=== PATIENT | male | born 1960 | race American Indian/Alaskan Native ===

== ENCOUNTER 2017-12-22 20:04 | Emergency (ER) | payer MEDICAID, OTHER ==
[2017-12-22] MEDS ORDERED: CATAPRES ONE (23:02)
[2017-12-22] MEDS ORDERED: CATAPRES PO ONE (23:04)
[2017-12-22 23:47] LABS: Basophils % (Auto) 0.6 % (0.0-1.8); Eosinophils # (Auto) 0.3 K/mm3 (0.0-0.4); Eosinophils % (Auto) 4.3 % (0.0-4.3); Hematocrit 42.7 % (35.5-45.6); Hemoglobin 13.9 gm/dl (11.8-15.2); Lymphocytes # (Auto) 2.5 K/mm3 (1.2-5.4); Lymphocytes % (Auto) 38.8 % (13.4-35.0); Mean Corpuscular HGB Conc 33 % (32-34); Mean Corpuscular Hemoglobin 28 pg (28-32); Mean Corpuscular Volume 85 fl (84-94); Monocytes # (Auto) 0.6 K/mm3 (0.0-0.8); Monocytes % (Auto) 9.1 % (0.0-7.3); Platelet Count 196 K/mm3 (140-440); Red Blood Count 5.02 M/mm3 (3.65-5.03); Red Cell Distribution Width 14.1 % (13.2-15.2)
[2017-12-22 23:51] LABS: Partial Thromboplastin Time 28.3 Sec. (24.2-36.6)
[2017-12-22 23:53] LABS: BUN/Creatinine Ratio 16; Blood Urea Nitrogen 18 mg/dL (9-20); Hemolysis Index 3
[2017-12-22 23:54] LABS: INR 1.02 (0.87-1.13)
--- NOTE | 2017-12-23 03:21 | Cat Scan Report ---
FINAL REPORT PROCEDURE: CT HEAD/BRAIN WO CON TECHNIQUE: Computerized tomography of the head was performed without contrast material. HISTORY: htn and blurred vision COMPARISON: No prior studies are available for comparison. FINDINGS: Skull and scalp: Normal. Paranasal sinuses: Normal. Ventricles and subarachnoid spaces: Normal. Cerebrum: No evidence of hemorrhage, acute infarction or mass. 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 Cerebellum and brainstem: No evidence of hemorrhage, acute infarction or mass. Vasculature: Normal. Comments: None. IMPRESSION: There is no acute intracranial abnormality.
[2017-12-23] MEDS ORDERED: CATAPRES ONE (07:35)
[2017-12-23] MEDS ORDERED: CATAPRES PO ONE (07:40)
[2017-12-23] MEDS ORDERED: ASPIRIN PO ONE (07:43)
[2017-12-23] MEDS ORDERED: NORMODYNE PO ONE (13:37)
[2017-12-23] MEDS ORDERED: NORMODYNE ONE (15:43)
--- NOTE | 2017-12-23 15:44 | Emergency Department Report ---
ED General Adult HPI - General Chief complaint: High BP Stated complaint: ELEVATED BLOOD PRESURE/BACK PAIN Time Seen by Provider: 12/23/17 13:27 Source: patient Mode of arrival: Ambulatory Limitations: No Limitations - History of Present Illness Initial comments: Patient stated that his vision was "a little blurry yesterday". He stated that "I knew it was time to get my blood pressure medicine". He doesn't have any blurred vision today. He is asymptomatic. He's been noncompliant with her blood pressure medicine for several months. He does not have any complaints at this time. -: month(s) (noncompliant for months hypertension for years visual symptoms resolved), year(s) Severity scale (0 -10): 0 - Related Data Previous Rx's Medication Instructions Recorded Last Taken Type Labetalol [Normodyne TAB] 100 mg PO BID #60 tablet 12/23/17 Unknown Rx Losartan/Hydrochlorothiazide 1 each PO QDAY #30 tablet 12/23/17 Unknown Rx [Losartan-Hctz 50-12.5 mg Tab] Allergies Allergy/AdvReac Type Severity Reaction Status Date / Time No Known Allergies Allergy Unverified 12/22/17 23:03 ED Review of Systems ROS: Stated complaint: ELEVATED BLOOD PRESURE/BACK PAIN Other details as noted in HPI Constitutional: denies: chills, fever Eyes: as per HPI, vision change. denies: eye pain, eye discharge ENT: denies: ear pain, throat pain Respiratory: denies: cough, shortness of breath, wheezing Cardiovascular: denies: chest pain, palpitations Endocrine: no symptoms reported Gastrointestinal: denies: abdominal pain, nausea, diarrhea Genitourinary: denies: urgency, dysuria Musculoskeletal: denies: back pain, joint swelling, arthralgia Skin: denies: rash, lesions Neurological: denies: headache, weakness, paresthesias Psychiatric: denies: anxiety, depression Hematological/Lymphatic: denies: easy bleeding, easy bruising ED Past Medical Hx - Past Medical History Previous Medical History?: No - Surgical History Past Surgical History?: No - Social History Smoking Status: Never Smoker Substance Use Type: None - Medications Home Medications: Home Medications Medication Instructions Recorded Confirmed Last Taken Type Labetalol [Normodyne TAB] 100 mg PO BID #60 tablet 12/23/17 Unknown Rx Losartan/Hydrochlorothiazide 1 each PO QDAY #30 tablet 12/23/17 Unknown Rx [Losartan-Hctz 50-12.5 mg Tab] ED Physical Exam - General Limitations: No Limitations General appearance: alert, in no apparent distress - Head Head exam: Present: atraumatic, normocephalic - Eye Eye exam: Present: normal appearance, PERRL, EOMI. Absent: scleral icterus - ENT ENT exam: Present: normal exam, mucous membranes moist - Neck Neck exam: Present: normal inspection. Absent: tenderness, meningismus - Respiratory Respiratory exam: Present: normal lung sounds bilaterally. Absent: respiratory distress - Cardiovascular Cardiovascular Exam: Present: regular rate, normal rhythm. Absent: systolic murmur, diastolic murmur, rubs, gallop - GI/Abdominal GI/Abdominal exam: Present: soft, normal bowel sounds. Absent: distended, tenderness, guarding, rebound, rigid - Rectal Rectal exam: Present: deferred - Extremities Exam Extremities exam: Present: normal inspection - Back Exam Back exam: Present: normal inspection - Neurological Exam Neurological exam: Present: alert, oriented X3, CN II-XII intact. Absent: motor sensory deficit - Psychiatric Psychiatric exam: Present: normal affect, normal mood - Skin Skin exam: Present: warm, dry, intact, normal color. Absent: rash ED Course Vital Signs 12/22/17 12/22/17 12/23/17 23:07 23:34 04:08 Temperature 98.1 F 97.8 F Pulse Rate 80 66 Respiratory 17 16 Rate Blood Pressure 202/113 202/113 194/104 Blood Pressure [Right] O2 Sat by Pulse 99 Oximetry 12/23/17 12/23/17 07:37 07:41 Temperature Pulse Rate 89 Respiratory Rate Blood Pressure 202/115 Blood Pressure 202/115 [Right] O2 Sat by Pulse Oximetry ED Medical Decision Making - Lab Data Result diagrams: 12/22/17 23:20 12/22/17 23:20 Laboratory Results - last 24 hr 12/22/17 12/22/17 12/22/17 23:20 23:20 23:20 WBC 6.3 RBC 5.02 Hgb 13.9 Hct 42.7 MCV 85 MCH 28 MCHC 33 RDW 14.1 Plt Count 196 Lymph % (Auto) 38.8 H [place] % (Auto) 9.1 H Eos % (Auto) 4.3 Baso % (Auto) 0.6 Lymph # 2.5 [place] # 0.6 Eos # 0.3 Baso # 0.0 Seg Neutrophils % 47.2 Seg Neutrophils # 3.0 PT 13.9 INR 1.02 APTT 28.3 Thrombin Time Sodium 138 Potassium 3.7 Chloride 98.4 Carbon Dioxide 26 Anion Gap 17 BUN 18 Creatinine 1.1 Estimated GFR > 60 BUN/Creatinine Ratio 16 Glucose 96 Calcium 9.0 Troponin T < 0.010 12/22/17 23:20 WBC RBC Hgb Hct MCV MCH MCHC RDW Plt Count Lymph % (Auto) [place] % (Auto) Eos % (Auto) Baso % (Auto) Lymph # [place] # Eos # Baso # Seg Neutrophils % Seg Neutrophils # PT INR APTT Thrombin Time 17.1 Sodium Potassium Chloride Carbon Dioxide Anion Gap BUN Creatinine Estimated GFR BUN/Creatinine Ratio Glucose Calcium Troponin T - Radiology Data Radiology results: report reviewed Critical care attestation.: If time is entered above; I have spent that time in minutes in the direct care of this critically ill patient, excluding procedure time. ED Disposition Clinical Impression: Hypertension, uncontrolled Disposition: DC-01 TO HOME OR SELFCARE Is pt being admited?: No Does the pt Need Aspirin: No Condition: Stable Instructions: Hypertension (ED) Additional Instructions: Follow-up with [facility] on your blood pressure. Our nurses directed. Return any acute change or problem. Prescriptions: Labetalol [Normodyne TAB] 100 mg PO BID #60 tablet Losartan/Hydrochlorothiazide [Losartan-Hctz 50-12.5 mg Tab] 1 each PO QDAY #30 tablet Referrals: PRIMARY CARE [Primary Care Provider] - 3-5 Days [facility] [Provider Group] - 3-5 Days Time of Disposition: 15:46
[2017-12-23 16:05] VITALS: BP 155/107
== END 2017-12-23 16:04 | disposition home or self-care (01) ==
LOC: ED 20:04
DX: I10 Essential (primary) hypertension (principal)
CPT/HCPCS: 36415; 70450; 80048; 84484; 85025; 85610; 85670; 85730; 93005; 93010